=== PATIENT | female | born 1960 | race Two or more races ===

== ENCOUNTER 2017-04-12 10:36 | Inpatient (IN) | payer OTHER ==
[2017-04-12 11:46] VITALS: BMI 25.8
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
[2017-04-12] MEDS ORDERED: MENTHOL/PHENOL 1 EACH UD MM PRN (12:59)
[2017-04-12] MEDS ORDERED: NICOTINE POLACRILEX 2 MG GUM BC PRN (12:59)
[2017-04-12] MEDS ORDERED: LOPERAMIDE HCL 2 MG CAPSULE PO PRN (12:59)
[2017-04-12] MEDS ORDERED: P-EPHED 60MG/TRIPROLIDI 2.5MG TABLET PO PRN (12:59)
[2017-04-12] MEDS ORDERED: guaiFENesin/D-METHORPHAN HB 10 ML UNIT-DOSE CUPS PO PRN (12:59)
[2017-04-12] MEDS ORDERED: MAG HYDROX/AL HYDROX/SIMETH 30 ML UNIT-DOSE CUP PO PRN (12:59)
[2017-04-12] MEDS ORDERED: MAGNESIUM CITRATE 300 ML BOTTLE PO PRN (12:59)
[2017-04-12] MEDS ORDERED: diphenhydrAMINE HCL 50 MG CAPSULE PO PRN (12:59)
[2017-04-12] MEDS ORDERED: hydrOXYzine PAMOATE 25 MG CAPSULE (FP) PO PRN (12:59)
[2017-04-12] MEDS ORDERED: ALBUTEROL SO4 6.7 GM HFA INHALER IH PRN (13:02)
[2017-04-12] MEDS ORDERED: diazePAM 5 MG TABLET PO ONE (13:45)
[2017-04-12] MEDS: GABAPENTIN 300 MG CAPSULE (FP) PO SCH ×2 (15:12→22:32)
[2017-04-12] MEDS: diazePAM 5 MG TABLET PO SCH ×2 (15:13→22:33)
[2017-04-12] MEDS: HYDROCORTISONE 1% TOPICAL CREAM 30 GM TUBE TP PRN (15:45)
--- NOTE | 2017-04-12 16:14 | CONSULT ---
[facility] - Data Date of interview: 04/12/17 [facility] Identifying data: This is 57 years old female with history of Bipolar Disorder intoxicated with: Alcohol, Cocaine and Nicotine Substance Abuse History: Smoking history: Current some day smoker. Have you smoked in the past 12 months: Yes. Aproximately how many cigarettes per day: 4 (PER WEEK). Cigars Per Day: 0. Hx Chewing Tobacco Use: No. Initiated information on smoking cessation: Yes. 'Breaking Loose' booklet given: . - Substance & Tx. History. Hx Alcohol Use: Yes. Hx Substance Use: Yes. Substance Use Type: Alcohol, Cocaine. Hx Substance Use Treatment: Yes. - Substances Abused. Alcohol. Route: Oral. Frequency: Daily. Amount used: 1 pint cognac/2 6pks beer. Age of first use: 29. Date of Last Use: 04/12/17. Cocaine. Route: Inhalation. Frequency: 3-6 times per week. Amount used: 3- 4 bags. Age of first use: 29. Date of Last Use: 04/10/17. valium. Route: Oral. Frequency: Daily. Age of first use: 29. Date of Last Use: 04/15/17 Medical History: Asthma, [place] Esophagus history, WPW Syndrom, Psychiatric History: Patient reports history of Bipolar disorder with most recent psychiatric admission on mopre then 20 years ago, reports to be stable on : Trazodone 400mg po qhs. Seroquel 200mg po qhs. Gabapentin 300mg po tid Physical/Sexual Abuse/Trauma History: Denies Additional Comment: Trazodone 400mg po qhs. Seroquel 200mg po qhs. Gabapentin 300mg po tid Mental Status Exam - Mental Status Exam Alert and Oriented to: Person Cognitive Function: Fair Patient Appearance: Well Groomed Mood: Anxious Affect: Mood Congruent Patient Behavior: Cooperative Speech Pattern: Appropriate Voice Loudness: Normal Thought Process: Goal Oriented Thought Disorder: Being Controlled Hallucinations: Denies Suicidal Ideation: Denies Homicidal Ideation: Denies Insight/Judgement: Fair Sleep: Difficulty falling asleep Appetite: Fair Muscle strength/Tone: Normal Gait/Station: Shuffling Additional Comments: Trazodone 400mg po qhs. Seroquel 200mg po qhs. Gabapentin 300mg po tid Psychiatric Findings - Problem List ([place] 1, 2,3) (1) Alcohol dependence Current Visit: Yes Status: Chronic Qualifiers: Substance use status: uncomplicated Qualified Code(s): F10.20 - Alcohol dependence, uncomplicated (2) Bipolar II disorder Current Visit: Yes Status: Chronic (3) Cocaine dependence Current Visit: Yes Status: Chronic Qualifiers: Substance use status: uncomplicated Qualified Code(s): F14.20 - Cocaine dependence, uncomplicated (4) Nicotine dependence Current Visit: Yes Status: Chronic Qualifiers: Nicotine product type: cigarettes Substance use status: uncomplicated Qualified Code(s): F17.210 - Nicotine dependence, cigarettes, uncomplicated (5) Drug-induced mood disorder Current Visit: Yes Status: Acute - Initial Treatment Plan Initial Treatment Plan: Trazodone 400mg po qhs. Seroquel 200mg po qhs. Gabapentin 300mg po tid
[2017-04-12] MEDS: ACETAMINOPHEN 325 MG TABLET (FP) PO PRN (18:12)
[2017-04-12] MEDS: diazePAM 5 MG TABLET PO PRN (18:12)
[2017-04-12 18:18] LABS: URINE APPEARANCE CLEAR; URINE BILIRUBIN NEGATIVE (NEGATIVE); URINE BLOOD NEGATIVE (NEGATIVE); URINE COLOR LTYELLOW; URINE GLUCOSE (UA) NEGATIVE (NEGATIVE); URINE KETONE NEGATIVE (NEGATIVE); URINE LEUK ESTERASE NEGATIVE (NEGATIVE); URINE NITRITE NEGATIVE (NEGATIVE); URINE PROTEIN NEGATIVE (NEGATIVE); URINE UROBILINOGEN NEGATIVE E.U./dl (0.2-1.0)
[2017-04-12] MEDS: traZODone HCL 100 MG TABLET (FP) PO SCH (22:32)
[2017-04-12] MEDS: THIAMINE HCL 100 MG TABLET (FP) PO SCH (22:33)
[2017-04-12] MEDS: QUEtiapine FUMARATE 200 MG TABLET PO SCH (22:33)
[2017-04-13] MEDS: diazePAM 5 MG TABLET PO PRN ×2 (02:40→10:36)
[2017-04-13] MEDS: GABAPENTIN 300 MG CAPSULE (FP) PO SCH ×3 (05:45→23:04)
[2017-04-13] MEDS: diazePAM 5 MG TABLET PO SCH ×3 (05:45→23:04)
--- NOTE | 2017-04-13 09:25 | EKG ---
Test Reason : Blood Pressure : / mmHG Vent. Rate : 075 BPM Atrial Rate : 075 BPM P-R Int : 144 ms QRS Dur : 082 ms QT Int : 382 ms P-R-T Axes : 077 067 069 degrees QTc Int : 426 ms NORMAL SINUS RHYTHM WITH SINUS ARRHYTHMIA NO PREVIOUS ECGS AVAILABLE Confirmed by JOSE LANCE MD ([id number]) on 04/13/2017 9:25:11 AM Referred By: Confirmed By:JOSE LANCE MD
[2017-04-13] MEDS ORDERED: ALBUTEROL SO4 2.5/IPRATROPIUM 0.5 INH SOL 3 ML VIAL.NEB. NEB ONE (09:36)
[2017-04-13] MEDS ORDERED: ALBUTEROL SO4 2.5/IPRATROPIUM 0.5 INH SOL 3 ML VIAL.NEB. NEB PRN (09:36)
[2017-04-13 10:09] LABS: MCH 29.1 pg (25.7-33.7); MEAN CELL VOLUME 90.8 fl (80-96); MEAN PLT VOLUME 9.7 fl (7.5-11.1); PLATELET COUNT 241 K/MM3 (134-434); RDW 17.1 % (11.6-15.6); WHITE BLOOD COUNT 9.2 K/mm3 (4.0-10.0)
[2017-04-13] MEDS: PRENATAL VITAMINS W/ FOLIC ACID TABLET (FP) PO SCH (10:36)
[2017-04-13] MEDS: NICOTINE 7 MG/24 HOURS TOPICAL PATCH TD SCH (10:37)
--- NOTE | 2017-04-13 11:27 | PN ---
S CIWA - CIWA Score Nausea/Vomitin-No Nausea/No Vomiting Muscle Tremors: 4-Moderate,w/Arms Extend Anxiety: 3 Agitation: 4-Moderately Restless Paroxysmal Sweats: 3 Orientation: 0-Oriented Tacttile Disturbances: 0-None Auditory Disturbances: 0-None Visual Disturbances: 0-None Headache: 0-None Present CIWA-Ar Total Score: 14 BHS Progress Note (SOAP) Subjective: wheezing sweats interrupted sleep body aches Objective: 04/13/17 11:26 Vital Signs Temperature 98.3 F 04/13/17 10:00 Pulse Rate 76 04/13/17 10:00 Respiratory Rate 16 04/13/17 10:00 Blood Pressure 92/69 04/13/17 10:00 O2 Sat by Pulse Oximetry (%) Laboratory Last Values WBC 9.2 K/mm3 (4.0-10.0) D 04/13/17 06:00 RBC 4.38 M/mm3 (3.60-5.2) 04/13/17 06:00 Hgb 12.8 GM/dL (10.7-15.3) D 04/13/17 06:00 Hct 39.8 % (32.4-45.2) D 04/13/17 06:00 MCV 90.8 fl (80-96) 04/13/17 06:00 MCHC 32.0 g/dl (32.0-36.0) 04/13/17 06:00 RDW 17.1 % (11.6-15.6) H D 04/13/17 06:00 Plt Count 241 K/MM3 (134-434) D 04/13/17 06:00 MPV 9.7 fl (7.5-11.1) D 04/13/17 06:00 Urine Color Ltyellow 04/12/17 15:44 Urine Appearance Clear 04/12/17 15:44 Urine pH 5.0 (5.0-8.0) 04/12/17 15:44 Ur Specific [place] <= 1.005 (1.005-1.025) 04/12/17 15:44 Urine Protein Negative (NEGATIVE) 04/12/17 15:44 Urine Glucose (UA) Negative (NEGATIVE) 04/12/17 15:44 Urine Ketones Negative (NEGATIVE) 04/12/17 15:44 Urine Blood Negative (NEGATIVE) 04/12/17 15:44 Urine Nitrite Negative (NEGATIVE) 04/12/17 15:44 Urine Bilirubin Negative (NEGATIVE) 04/12/17 15:44 Urine Urobilinogen Negative E.U./dl (0.2-1.0) 04/12/17 15:44 Ur Leukocyte Esterase Negative (NEGATIVE) 04/12/17 15:44 labs pending awake/alert ambulating no acute distress Assessment: 04/13/17 11:26 withdrawal sx Plan: continue detox increase fluids duoneb tx
[2017-04-13 12:12] LABS: ALBUMIN 4.2 g/dl (3.4-5.0); ANION GAP 12 (8-16); CALCIUM 9.3 mg/dL (8.5-10.1); CO2 25 mmol/L (21-32); GLUCOSE,RANDOM 69 mg/dL (74-106)
[2017-04-13 12:15] LABS: ALK PHOS 128 U/L (45-117); BILIRUBIN,TOTAL 0.8 mg/dL (0.2-1.0); COCKROFT - GAULT 89.9555; CREATININE 0.8 mg/dL (0.55-1.02); SGOT/AST 22 U/L (15-37); SGPT/ALT 21 U/L (12-78)
[2017-04-13] MEDS: MAGNESIUM HYDROX 2400MG/30ML ORAL SUSPENSION 30 ML CUP PO PRN (17:32)
[2017-04-13] MEDS: traZODone HCL 100 MG TABLET (FP) PO SCH (23:04)
[2017-04-13] MEDS: QUEtiapine FUMARATE 200 MG TABLET PO SCH (23:04)
[2017-04-13] MEDS: THIAMINE HCL 100 MG TABLET (FP) PO SCH (23:05)
[2017-04-14] MEDS: GABAPENTIN 300 MG CAPSULE (FP) PO SCH ×2 (05:32→14:15)
[2017-04-14] MEDS: ACETAMINOPHEN 325 MG TABLET (FP) PO PRN ×2 (06:02→09:43)
[2017-04-14] MEDS: HYDROCORTISONE 1% TOPICAL CREAM 30 GM TUBE TP PRN (09:43)
[2017-04-14] MEDS ORDERED: diazePAM 5 MG TABLET PO SCH (10:00)
[2017-04-14] MEDS: PRENATAL VITAMINS W/ FOLIC ACID TABLET (FP) PO SCH (10:39)
[2017-04-14] MEDS: NICOTINE 7 MG/24 HOURS TOPICAL PATCH TD SCH (10:40)
[2017-04-14] MEDS ORDERED: LIDOCAINE 5% TOPICAL PATCH TP ONE (10:55)
[2017-04-14] MEDS: MAGNESIUM HYDROX 2400MG/30ML ORAL SUSPENSION 30 ML CUP PO PRN (11:07)
[2017-04-14] MEDS: diazePAM 5 MG TABLET PO PRN (14:15)
[2017-04-14 15:06] VITALS: BP 98/54; PULSE 82; TEMP 98.1
--- NOTE | 2017-04-14 17:35 | DS ---
[facility] Detox Discharge Summary Admission Date: 04/12/17 Discharge Date: 04/14/17 - History Present History: Alcohol Dependence Pertinent Past History: WPW, Dodson esophagus, asthma Laboratory Last Values WBC 9.2 K/mm3 (4.0-10.0) D 04/13/17 06:00 RBC 4.38 M/mm3 (3.60-5.2) 04/13/17 06:00 Hgb 12.8 GM/dL (10.7-15.3) D 04/13/17 06:00 Hct 39.8 % (32.4-45.2) D 04/13/17 06:00 MCV 90.8 fl (80-96) 04/13/17 06:00 MCHC 32.0 g/dl (32.0-36.0) 04/13/17 06:00 RDW 17.1 % (11.6-15.6) H D 04/13/17 06:00 Plt Count 241 K/MM3 (134-434) D 04/13/17 06:00 MPV 9.7 fl (7.5-11.1) D 04/13/17 06:00 Sodium 142 mmol/L (136-145) 04/13/17 06:00 Potassium 4.4 mmol/L (3.5-5.1) 04/13/17 06:00 Chloride 105 mmol/L (98-107) 04/13/17 06:00 Carbon Dioxide 25 mmol/L (21-32) 04/13/17 06:00 Anion Gap 12 (8-16) 04/13/17 06:00 BUN 8 mg/dL (7-18) 04/13/17 06:00 Creatinine 0.8 mg/dL (0.55-1.02) 04/13/17 06:00 Creat Clearance w eGFR > 60 (>60) 04/13/17 06:00 Random Glucose 69 mg/dL (74-106) L D 04/13/17 06:00 Calcium 9.3 mg/dL (8.5-10.1) 04/13/17 06:00 Total Bilirubin 0.8 mg/dL (0.2-1.0) D 04/13/17 06:00 AST 22 U/L (15-37) D 04/13/17 06:00 ALT 21 U/L (12-78) 04/13/17 06:00 Alkaline Phosphatase 128 U/L (45-117) H D 04/13/17 06:00 Total Protein 8.0 g/dl (6.4-8.2) 04/13/17 06:00 Albumin 4.2 g/dl (3.4-5.0) 04/13/17 06:00 Urine Color Ltyellow 04/12/17 15:44 Urine Appearance Clear 04/12/17 15:44 Urine pH 5.0 (5.0-8.0) 04/12/17 15:44 Ur Specific [place] <= 1.005 (1.005-1.025) 04/12/17 15:44 Urine Protein Negative (NEGATIVE) 04/12/17 15:44 Urine Glucose (UA) Negative (NEGATIVE) 04/12/17 15:44 Urine Ketones Negative (NEGATIVE) 04/12/17 15:44 Urine Blood Negative (NEGATIVE) 04/12/17 15:44 Urine Nitrite Negative (NEGATIVE) 04/12/17 15:44 Urine Bilirubin Negative (NEGATIVE) 04/12/17 15:44 Urine Urobilinogen Negative E.U./dl (0.2-1.0) 04/12/17 15:44 Ur Leukocyte Esterase Negative (NEGATIVE) 04/12/17 15:44 RPR Titer Reactive 1:2 (NONREACTIVE) H D 04/13/17 06:00 T.pallidum Ab (MHA) Previously reactive (NONREACTIVE) 04/13/17 06:00 labs noted - Physical Exam Results Vital Signs: Vital Signs Temperature 98.1 F 04/14/17 15:06 Pulse Rate 82 04/14/17 15:06 Respiratory Rate 16 04/14/17 15:06 Blood Pressure 98/54 04/14/17 15:06 O2 Sat by Pulse Oximetry (%) Pertinent Admission Physical Exam Findings: withdrawal sx - Medication Discharge Medications: Ambulatory Orders Albuterol Sulfate Inhaler - [Ventolin Hfa Inhaler -] 2 inh PO Q4H PRN 04/12/17 Gabapentin [Neurontin -] 300 mg PO Q8H 04/12/17 Gabapentin [Neurontin -] 300 mg PO TID #90 cap 04/12/17 Quetiapine Fumarate [Seroquel -] 200 mg PO HS 04/12/17 Quetiapine Fumarate [Seroquel -] 200 mg PO HS #30 tab 04/12/17 Trazodone HCl [Desyrel -] 400 mg PO HS 04/12/17 Trazodone HCl [Desyrel -] 400 mg PO HS #30 tablet 04/12/17 - Diagnosis (1) Drug-induced mood disorder Current Visit: Yes Status: Acute (2) Dodson esophagus Current Visit: Yes Status: Chronic Qualifiers: Dodson's esophagus type: with dysplasia of unspecified degree Qualified Code(s): K22.719 - Dodson's esophagus with dysplasia, unspecified; K22.71 - Dodson's esophagus with dysplasia (3) Bipolar II disorder Current Visit: Yes Status: Chronic (4) Cocaine dependence Current Visit: Yes Status: Chronic Qualifiers: Substance use status: uncomplicated Qualified Code(s): F14.20 - Cocaine dependence, uncomplicated (5) Nicotine dependence Current Visit: Yes Status: Chronic Qualifiers: Nicotine product type: cigarettes Substance use status: uncomplicated Qualified Code(s): F17.210 - Nicotine dependence, cigarettes, uncomplicated (6) Sedative, hypnotic or anxiolytic dependence, uncomplicated Current Visit: Yes Status: Acute - AMA Did Patient Leave Against Medical Advice: Yes
[2017-04-14] MEDS ORDERED: LIDOCAINE PATCH REMOVAL MC SCH (22:00)
[2017-04-16] MEDS ORDERED: diazePAM 5 MG TABLET PO SCH (10:00)
== END 2017-04-14 16:50 | disposition left against medical advice (07) | DRG 770 ==
LOC: YASAS 10:36 → Y6N 12:55
PROVIDERS: ADMIT Internal Medicine Addiction Medicine; ATTEND Internal Medicine Addiction Medicine
PROC: HZ2ZZZZ Detoxification Services for Substance Abuse Treatment (ICD-10-PCS; principal; 2017-04-12)
DX: F13.230 Sedative, hypnotic or anxiolytic dependence with withdrawal, uncomplicated (principal); F14.20 Cocaine dependence, uncomplicated; F17.210 Nicotine dependence, cigarettes, uncomplicated; F31.81 Bipolar II disorder; F19.24 Other psychoactive substance dependence with psychoactive substance-induced mood disorder; K22.719 Barrett's esophagus with dysplasia, unspecified; J45.909 Unspecified asthma, uncomplicated; I45.6 Pre-excitation syndrome; Z87.42 Personal history of other diseases of the female genital tract; Z98.84 Bariatric surgery status; Z96.652 Presence of left artificial knee joint; Z90.710 Acquired absence of both cervix and uterus; Z87.828 Personal history of other (healed) physical injury and trauma
CPT/HCPCS: 36415; 80053; 81003; 85027; 86593; 86780; 93005; 93010; 94640